=== PATIENT | male | born 1985 | race Caucasian/White ===

== ENCOUNTER 2025-11-16 17:57 | Inpatient (IN) | payer BC ==
[~2025-11-16] VITALS: Ht 188 cm; Wt 99.8 kg
[2025-11-16] MEDS ORDERED: CEFEPIME HCL1 GM IJ (19:39)
[2025-11-16] MEDS ORDERED: VANCOMYCIN HCL125 MG PO (19:40)
[2025-11-16] MEDS ORDERED: LEXAPRO5 MG PO (19:41)
[2025-11-16] MEDS ORDERED: ZIANA GEL30 GM (19:41)
[2025-11-16 22:13] LABS: BASO % 0.8 % (0.1-1.2); EOS # 0.11 (0.04-0.54); EOS % 1.8 % (0.7-7.0); LYMPH # 1.52 (1.18-3.74); LYMPH % 24.8 % (19.3-53.1); MEAN PLATELET VOLUME 10.40 fl (9.4-12.4); MONO # 0.67 (0.24-0.82); MONO % 10.9 % (4.7-12.5); NEUT # 3.78 (1.56-6.13); NEUT % 61.5 % (34.0-71.1); RED CELL DISTRIBUTION WIDTH 11.9 % (11.6-14.4)
[2025-11-16 22:15] LABS: ERYTHROCYTE SEDIMENTATION RATE 12 mm/hr (0-15)
[2025-11-16 22:43] LABS: ALT/SGPT 36.0 U/L (12-78); AST/SGOT 34.0 U/L (15-37); BILIRUBIN TOTAL 0.53 mg/dL (0.3-1.2); BUN CREA RATIO 19.0 (7.0-25.0); CREATININE SERUM 0.83 mg/dL (0.70-1.30); GFR 103.14; GLOBULINA 3.4 G/DL (2.4-3.5); GLUCOSE FASTING 87.0 mg/dL (65-100); OSMOLALITY SERUM 284.0 MOSM/KG (275-295)
[2025-11-16] MEDS ORDERED: VANCOMYCIN HCL 1,000 MG VIAL IV ONE (23:30)
[2025-11-17 02:26] LABS: INR 1.1
[2025-11-17] MEDS ORDERED: 0.9 % SODIUM CHLORIDE 1,000 ML IV SCH (18:00)
[2025-11-17] MEDS ORDERED: CIPROFLOXACIN IN 5 % DEXTROSE 200 ML IV SCH (18:02)
[2025-11-17] MEDS ORDERED: FAMOTIDINE/PF 20 MG in 0.9 % SODIUM CHLORIDE 8 ML IV PUSH SCH (18:03)
[2025-11-17] MEDS ORDERED: KETOROLAC TROMETHAMINE 15 MG VIAL IU ONE (18:15)
[2025-11-17] MEDS ORDERED: ACETAMINOPHEN 500 MG GEL..CAP PO PRN (18:15)
[2025-11-17 19:35] LABS: URINE BILIRRUBIN Negative (NEGATIVE); URINE BLOOD Negative; URINE COLOR Yellow; URINE GLUCOSE Negative (NEGATIVE); URINE KETONE Negative (NEGATIVE); URINE LEUKOCYTE Negative; URINE NITRATE Negative; URINE PROTEIN Negative (NEGATIVE); URINE UROBILINOGEN 1.0 E.U./dl
[2025-11-17 19:36] LABS: URINE RBC 4.3 uL (0.0-20.8)
[2025-11-17 19:58] LABS: URINE APPEARANCE CLEAR; URINE BACTERIA 3.4 uL (0.0-1933); URINE CAST 0.00 uL (0.0-1.40); URINE EPITHELIAL CELLS 0.0 uL (0.0-38.8); URINE WBC 1.3 uL (0.0-23.2)
[2025-11-18 02:00] VITALS: BP 123/72; O2SAT 97
[2025-11-18] MEDS ORDERED: VANCOMYCIN HCL 1,000 MG VIAL IV SCH (05:00)
[2025-11-18] MEDS ORDERED: ENOXAPARIN SODIUM 40 MG/0.4 ML SYRINGE SUBCUTANEO SCH (09:00)
[2025-11-18 10:05] VITALS: BP 123/77; O2SAT 98
[2025-11-18] MEDS ORDERED: CEFAZOLIN SODIUM 2,000 MG in 0.9 % SODIUM CHLORIDE 100 ML IV SCH (17:00)
[2025-11-18 19:58] VITALS: BP 124/69
[2025-11-19 02:56] VITALS: BP 128/76; O2SAT 97
[2025-11-19 08:00] VITALS: BP 123/74
[2025-11-19 19:37] VITALS: BP 139/96; O2SAT 99
[2025-11-20 02:12] VITALS: BP 119/75; O2SAT 96
[2025-11-20 08:49] VITALS: BP 131/83; O2SAT 97
== END 2025-11-20 22:49 | disposition home or self-care (01) | DRG 603 ==
LOC: ER 17:58 → MEDJ 11-17 19:09
PROVIDERS: General Practice; Preventive Medicine Public Health & General Preventive Medicine; ADMIT Internal Medicine; ATTEND Internal Medicine
PROC: BH48ZZZ Ultrasonography of Lower Extremity (ICD-10-PCS; principal; 2025-11-18)
DX: L03.116 Cellulitis of left lower limb (principal); L02.416 Cutaneous abscess of left lower limb; L02.436 Carbuncle of left lower limb; A49.01 Methicillin susceptible Staphylococcus aureus infection, unspecified site